=== PATIENT | male | born 1970 | race Caucasian/White ===

== ENCOUNTER → 2016-12-27 | Outpatient (CLI) | payer OTHER | END | disposition home or self-care (01) | LOC: MRI 15:40 → RAD 16:00 → MRI 16:00 | DX: R41.3 Other amnesia (principal); R26.89 Other abnormalities of gait and mobility | CPT/HCPCS: 70551 ==

== ENCOUNTER 2017-01-02 17:12 | Emergency (ER) | payer OTHER ==
[~2017-01-02] VITALS: Ht 172.7 cm; Wt 88.0 kg
[2017-01-02 18:45] LABS: HEMATOCRIT 47.5 % (38.0-50.0); MCHC 33.1 G/DL (30.0-36.0); MCV 102.8 FL (86-99); MEAN PLAT.VOLUME 10.8 uM^3 (9.0-12.4); PLATELET COUNT 168 K/uL (156-360); RBC DIS.WIDTH-CV 12.4 % (11.8-14.6); RBC DIS.WIDTH-SD 47.3 % (39-53); RED BLOOD COUNT 4.62 M/uL (4.00-5.50); WHITE BLOOD COUNT 4.7 K/uL (4.1-10.2)
[2017-01-02 18:54] LABS: CHLORIDE 102 mEq/L (99-109); POTASSIUM 4.7 mEq/L (3.7-5.4); SODIUM 141 mEq/L (136-147)
[2017-01-02 18:56] LABS: GLUCOSE 82 mg/dL (70-99)
[2017-01-02 18:58] LABS: ANION GAP 13 MEQ/L (2-14); TOTAL BILIRUBIN 0.7 mg/dL (0.0-1.0)
[2017-01-02 19:00] LABS: ALKALINE PHOSPHATASE 102 IU/L (3-129); GFR ESTIMATE (CALCULATED) > 59 mL/min/
[2017-01-02 19:01] LABS: UREA NITROGEN (BUN) 10 mg/dL (9-23)
[2017-01-02] MEDS ORDERED: CLEOCIN300 MG PO (21:04)
[2017-01-02 21:17] VITALS: BP 133/81
== END 2017-01-02 21:58 | disposition home or self-care (01) ==
LOC: EME 17:12
PROVIDERS: Physician Assistant
DX: L03.113 Cellulitis of right upper limb (principal)
CPT/HCPCS: 80053; 83605; 85027; 87040; 93971; 99281; 99284; J7030

== ENCOUNTER 2017-01-06 18:06 | Inpatient (IN) | payer OTHER ==
[~2017-01-06] VITALS: Ht 172.7 cm; Wt 86.0 kg
[~2017-01-06 18:06] MED LIST: CLEOCIN300 MG PO
[2017-01-06 19:51] LABS: HEMATOCRIT 45.7 % (38.0-50.0); MCH 33.8 PG (29.0-34.0); MCV 102.2 FL (86-99); MEAN PLAT.VOLUME 11.3 uM^3 (9.0-12.4); PLATELET COUNT 157 K/uL (156-360); RBC DIS.WIDTH-CV 12.2 % (11.8-14.6); RED BLOOD COUNT 4.47 M/uL (4.00-5.50); WHITE BLOOD COUNT 5.5 K/uL (4.1-10.2)
[2017-01-06 20:03] LABS: CHLORIDE 104 mEq/L (99-109); SODIUM 141 mEq/L (136-147)
[2017-01-06 20:05] LABS: GLUCOSE 77 mg/dL (70-99); POTASSIUM 3.7 mEq/L (3.7-5.4)
[2017-01-06 20:06] LABS: ANION GAP 14 MEQ/L (2-14)
[2017-01-06 20:07] LABS: TOTAL BILIRUBIN 0.7 mg/dL (0.0-1.0)
[2017-01-06 20:09] LABS: ALKALINE PHOSPHATASE 85 IU/L (3-129); GFR ESTIMATE (CALCULATED) > 59 mL/min/
[2017-01-06 20:10] LABS: UREA NITROGEN (BUN) 15 mg/dL (9-23)
[2017-01-06 20:51] LABS: C-REACTIVE PROTEIN < 1.0 MG/L (0-10)
[2017-01-07 00:20] VITALS: BP 117/59
[2017-01-07 01:43] LABS: MAGNESIUM 2.1 mg/dl (1.3-2.7)
[2017-01-07 03:43] VITALS: BP 125/83
[2017-01-07 07:18] VITALS: BP 141/76
[2017-01-07 11:12] VITALS: BP 147/87
[2017-01-07 13:01] LABS: BASOPHIL COUNT 0.1 K/uL (0-0.1); EOSINOPHIL (%) 3.3 % (0-5); EOSINOPHIL COUNT 0.2 K/uL (0-0.3); HEMATOCRIT 44.6 % (38.0-50.0); IMMATURE GRANULOCYTE (%) 0.8 % (0.0-0.7); INSTRUMENT ABS NEUTROPHIL CT 3.8 K/uL; LYMPHOCYTE COUNT 0.7 K/uL (1.0-2.8); MCH 34.9 PG (29.0-34.0); MCHC 33.4 G/DL (30.0-36.0); MCV 104.4 FL (86-99); MONOCYTE (%) 6.7 % (3-12); MONOCYTE COUNT 0.3 K/uL (0-0.8); NEUTROPHIL (%) 74.5 % (45-76); NEUTROPHIL COUNT 3.8 K/uL (1.8-6.4); PLATELET COUNT 147 K/uL (156-360); RBC DIS.WIDTH-CV 12.4 % (11.8-14.6); RBC DIS.WIDTH-SD 47.9 % (39-53); RED BLOOD COUNT 4.27 M/uL (4.00-5.50); WHITE BLOOD COUNT 5.1 K/uL (4.1-10.2)
[2017-01-07 13:34] LABS: ALKALINE PHOSPHATASE 68 IU/L (3-129); ANION GAP 7 MEQ/L (2-14); CHLORIDE 105 MEQ/L (99-109); GFR ESTIMATE (CALCULATED) > 59 mL/min/; SAMPLE HEMOLYSIS CHECK 0; SAMPLE ICTERIC CHECK 0; SAMPLE LIPEMIA CHECK 0; SODIUM 139 MEQ/L (136-147); TOTAL BILIRUBIN 0.9 MG/DL (0.0-1.0); UREA NITROGEN (BUN) 13 mg/dL (9-23)
[2017-01-07 13:37] LABS: GLUCOSE 176 mg/dL (70-99)
[2017-01-07 15:16] VITALS: BP 134/78
== END 2017-01-07 18:05 | disposition left against medical advice (07) | DRG 603 ==
LOC: EME 18:06 → EXP 18:06 → EDOF 22:00 → 5SOUTH 23:39
PROVIDERS: Internal Medicine; Physician Assistant
DX: L03.113 Cellulitis of right upper limb (principal); F10.239 Alcohol dependence with withdrawal, unspecified; Z68.28 Body mass index [BMI] 28.0-28.9, adult
CPT/HCPCS: 73201; 80053; 83605; 83735; 85025; 85027; 86140; 87040; 99281; 99285; J1650; J1885; J2060; J2270; J2543; J3370; J3411; J7030; J7050

== ENCOUNTER → 2017-05-10 | Outpatient (CLI) | payer OTHER | END | disposition home or self-care (01) | LOC: RAD 16:55 | DX: R93.6 Abnormal findings on diagnostic imaging of limbs (principal) | CPT/HCPCS: 93970 ==

== ENCOUNTER 2017-05-27 14:52 | Emergency (ER) | payer OTHER ==
[~2017-05-27] VITALS: Ht 177.8 cm; Wt 92.5 kg
[2017-05-27 16:26] VITALS: BP 147/102
== END 2017-05-27 16:28 | disposition home or self-care (01) ==
LOC: EME 14:52
DX: S61.412A Laceration without foreign body of left hand, initial encounter (principal); W25.XXXA Contact with sharp glass, initial encounter; Z23 Encounter for immunization; Z88.8 Allergy status to other drugs, medicaments and biological substances
CPT/HCPCS: 99281; 99284

== ENCOUNTER 2017-06-27 14:44 | Emergency (ER) | payer OTHER ==
[~2017-06-27] VITALS: Ht 160 cm; Wt 93.1 kg
[2017-06-27 18:26] VITALS: BP 136/102
== END 2017-06-27 18:27 | disposition home or self-care (01) ==
LOC: EME 14:44
DX: R60.0 Localized edema (principal)
CPT/HCPCS: 93970; 99281; 99283

== ENCOUNTER 2017-06-30 10:10 | Emergency (ER) | payer OTHER ==
[~2017-06-30] VITALS: Ht 172.7 cm; Wt 90.2 kg
[2017-06-30 11:26] LABS: EOSINOPHIL (%) 0.8 % (0-5); EOSINOPHIL COUNT 0.1 K/uL (0-0.3); HEMATOCRIT 45.8 % (38.0-50.0); IMMATURE GRANULOCYTE (%) 0.3 % (0.0-0.7); INSTRUMENT ABS NEUTROPHIL CT 5.2 K/uL; LYMPHOCYTE COUNT 0.6 K/uL (1.0-2.8); MCH 34.5 PG (29.0-34.0); MCHC 33.4 G/DL (30.0-36.0); MCV 103.2 FL (86-99); MEAN PLAT.VOLUME 10.6 uM^3 (9.0-12.4); MONOCYTE (%) 9.3 % (3-12); MONOCYTE COUNT 0.6 K/uL (0-0.8); NEUTROPHIL (%) 80.5 % (45-76); NEUTROPHIL COUNT 5.2 K/uL (1.8-6.4); PLATELET COUNT 144 K/uL (156-360); RBC DIS.WIDTH-CV 11.9 % (11.8-14.6); RBC DIS.WIDTH-SD 45.4 % (39-53); RED BLOOD COUNT 4.44 M/uL (4.00-5.50); WHITE BLOOD COUNT 6.5 K/uL (4.1-10.2)
[2017-06-30 11:34] LABS: CHLORIDE 101 mEq/L (99-109); POTASSIUM 3.9 mEq/L (3.7-5.4); SODIUM 135 mEq/L (136-147)
[2017-06-30 11:36] LABS: GLUCOSE 139 mg/dL (70-99)
[2017-06-30 11:37] LABS: ANION GAP 12 MEQ/L (2-14)
[2017-06-30 11:40] LABS: GFR ESTIMATE (CALCULATED) > 59 mL/min/
[2017-06-30 11:41] LABS: UREA NITROGEN (BUN) 16 mg/dL (9-23)
[2017-06-30] MEDS ORDERED: B-1100 MG PO (13:23)
[2017-06-30] MEDS ORDERED: LIBRIUM25 MG PO (13:23)
[2017-06-30] MEDS ORDERED: PRINIVIL5 MG PO (13:24)
[2017-06-30 13:35] VITALS: BP 153/113
== END 2017-06-30 13:38 | disposition home or self-care (01) ==
LOC: EME 10:10
PROVIDERS: Emergency Medicine
DX: R20.2 Paresthesia of skin (principal); I10 Essential (primary) hypertension; F10.20 Alcohol dependence, uncomplicated; Z88.8 Allergy status to other drugs, medicaments and biological substances
CPT/HCPCS: 80048; 85025; 99281; 99285

== ENCOUNTER 2018-02-07 21:09 | Emergency (ER) | payer OTHER ==
[~2018-02-07] VITALS: Ht 175.3 cm; Wt 89.5 kg
[~2018-02-07 21:09] MED LIST changes: +B-1100 MG PO; +LIBRIUM25 MG PO; +PRINIVIL5 MG PO
[2018-02-07 21:50] LABS: MCH 32.5 PG (29.0-34.0); MCHC 34.1 G/DL (30.0-36.0); MCV 95.4 FL (86-99); PLATELET COUNT 195 K/uL (156-360); RBC DIS.WIDTH-CV 12.2 % (11.8-14.6); RBC DIS.WIDTH-SD 43.1 % (39-53); RED BLOOD COUNT 4.61 M/uL (4.00-5.50); WHITE BLOOD COUNT 7.7 K/uL (4.1-10.2)
[2018-02-07 22:05] LABS: CHLORIDE 104 mEq/L (99-109); SODIUM 140 mEq/L (136-147)
[2018-02-07 22:07] LABS: GLUCOSE 87 mg/dL (70-99)
[2018-02-07 22:11] LABS: GFR ESTIMATE (CALCULATED) > 59 mL/min/ (58.99-99999); UREA NITROGEN (BUN) 19 mg/dL (9-23)
[2018-02-07 22:41] LABS: TROP-I INTERPRETATION NEGATIVE; TROPONIN-I < 0.01 ng/mL (0.0-0.30)
[2018-02-07 23:02] LABS: D-DIMER ELISA < 150.00 ng/mLDDU (<230)
[2018-02-08 01:28] VITALS: BP 113/82
== END 2018-02-08 01:31 | disposition home or self-care (01) ==
LOC: EME 21:09
PROVIDERS: Emergency Medicine
DX: R06.00 Dyspnea, unspecified (principal); M79.89 Other specified soft tissue disorders; R60.0 Localized edema; R14.0 Abdominal distension (gaseous); R35.0 Frequency of micturition; R94.31 Abnormal electrocardiogram [ECG] [EKG]
CPT/HCPCS: 71046; 80048; 83880; 84484; 85027; 85379; 93005; 93971; 99281; 99284

== ENCOUNTER 2018-03-17 20:27 | Emergency (ER) | payer OTHER ==
[~2018-03-17] VITALS: Ht 172.7 cm; Wt 90.4 kg
[2018-03-17 21:28] VITALS: BP 125/81
== END 2018-03-17 21:28 | disposition home or self-care (01) ==
LOC: EME 20:27
PROC: 2W3JX1Z Immobilization of Right Finger using Splint (ICD-10-PCS; principal; 2018-03-17)
DX: S62.666A Nondisplaced fracture of distal phalanx of right little finger, initial encounter for closed fracture (principal); F10.129 Alcohol abuse with intoxication, unspecified; W10.9XXA Fall (on) (from) unspecified stairs and steps, initial encounter; Y92.008 Other place in unspecified non-institutional (private) residence as the place of occurrence of the external cause; Z88.8 Allergy status to other drugs, medicaments and biological substances
CPT/HCPCS: 73140; 99281; 99284